=== PATIENT | male | born 1960 | race Caucasian/White ===

== ENCOUNTER 2019-05-24 09:04 | Day surgery (SDC) | payer MEDICARE, SELFPAY ==
[~2019-05-24] VITALS: Ht 172.7 cm; Wt 90.0 kg
[~2019-05-24 09:04] MED LIST: ALBU90OI61 INH; AMOX500 PO; ASPI325 PO; ATOR40TA PO; AZIT250 PO; Aspirin EC81 MG PO; CODGUAEL PO; Coq-10100 MG PO; METO25ER PO; Prinivil10 MG PO; SPIR25 PO; TRIA55OI
[2019-05-24] MEDS ORDERED: CARV6.25 PO (09:35)
[2019-05-24] MEDS ORDERED: CENTRUM SILVER1 EAC2 PO (09:35)
--- NOTE | 2019-05-24 10:41 | NUR ---
PT ARRIVED TO RECOVERY. PT IS ALERT AND ANSWERING QUESTIONS APPROPRIATELY. PT DENIES CHEST PAIN/PRESSURE OR SOB. MONITOR SR WITH PVCS 60'S, B/P 101/58, SPO2 96% RA. R RADIAL SITE NO SWELLING/HEMATOMA, TR BAND IN PLACE 9CC AIR IN BAND.
--- NOTE | 2019-05-24 11:43 | NUR ---
DR. EDWARDS SPOKE TO PATIENT AND FAMILY IN THE RECOVERY ROOM.
--- NOTE | 2019-05-24 15:00 | NUR ---
PT AMB TO BATHROOM WITHOUT PROBLEM, SITE UNCHANGED WITH ACTIVITY; VOIDED QS.
--- NOTE | 2019-05-24 15:14 | NUR ---
PT AND RECEIVED DISCHARGE INSTRUCTIONS AND HANDOUTS, VERBALIZED GOOD UNDERSTANDING. TR BAND REMVOED, SITE WITHOUT SWELLING/HEMATOMA OR OOZING, CLOTH DOT PLACED, IV REMOVED CANNULA INTACT. PT DISCHARGED HOME WITH TO CAR VIA W/C.
== END 2019-05-24 15:09 | disposition home or self-care (01) ==
LOC: MHTC 09:04
DX: I25.10 Atherosclerotic heart disease of native coronary artery without angina pectoris (principal); I42.9 Cardiomyopathy, unspecified; I11.9 Hypertensive heart disease without heart failure; I25.2 Old myocardial infarction; D64.9 Anemia, unspecified; F32.9 Major depressive disorder, single episode, unspecified; E78.5 Hyperlipidemia, unspecified; G47.30 Sleep apnea, unspecified; Z99.89 Dependence on other enabling machines and devices; Z79.899 Other long term (current) drug therapy; Z79.82 Long term (current) use of aspirin; Z87.891 Personal history of nicotine dependence; Z88.1 Allergy status to other antibiotic agents
CPT/HCPCS: 93459; 99152; 99153; C1769; C1894; J1644; J2250; J3010; J7030; Q9967